=== PATIENT | male | born 1975 | race Caucasian/White ===

== ENCOUNTER → 2022-02-26 | Outpatient (CLI) | payer MEDICARE, MEDICAID | LOC: CARDFS 02-15 13:32 | PROVIDERS: ATTEND Nurse Practitioner | DX: I34.0 Nonrheumatic mitral (valve) insufficiency (principal); I51.7 Cardiomegaly | CPT/HCPCS: 93306 ==

== ENCOUNTER 2022-12-17 14:33 | Emergency (ER) | payer MEDICARE, MEDICAID ==
[~2022-12-17] VITALS: Ht 172 cm; Wt 70.0 kg
--- NOTE | 2022-12-17 15:39 | ED Upper Extremity ---
General Chief Complaint: Upper Extremity Stated Complaint: RT FOREARM PAIN Nursing Triage Note: PT AMB TO TRIAGE PT CO OF R FOREARM HAVING REDDNESS AND PAIN 5/10, PT HAS SCABBED AREA NOTED AT WRIST AREA. 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 Source: patient History of Present Illness Date Seen by Provider: Dec 17, 2022 Time Seen by Provider: 15:32 Initial Comments This is a 47-year-old male who presented to the ER with complaints of right forearm redness and pain that started yesterday. Allergies and Home Medications Allergies Coded Allergies: No Known Drug Allergies (Unverified , 12/17/22) Past Ciqghpt-Fscpxl-Nizkog Hx Patient Social History Tobacco Use?: No Substance use?: No Alcohol Use?: No Pt feels they are or have been: No Immunizations Up To Date Influenza Vaccine Up-to-Date: No; Not Current First/Initial COVID19 Vaccinat: NO Second COVID19 Vaccination Leon: NO Past Medical History Surgery/Hospitalization HX: RENAL FAILURE, DIALYSIS Physical Exam Vital Signs Vital Signs - First Documented 12/17/22 14:45 Temp 36.8 Pulse 79 Resp 18 Pulse Ox 96 Capillary Refill : Height, Weight, BMI Height: '" Weight: lbs. oz. kg; 23.00 BMI Method: Progress/Results/Core Measures Results/Orders Lab Results Laboratory Tests Test 12/17/22 15:30 Range/Units White Blood Count 9.6 4.3-11.0 10^3/uL Red Blood Count 3.63 L 4.30-5.52 10^6/uL Hemoglobin 11.8 L 13.3-17.7 g/dL Hematocrit 34 L 40-54 % Mean Corpuscular Volume 94 80-99 fL Mean Corpuscular Hemoglobin 33 25-34 pg Mean Corpuscular Hemoglobin Concent 35 32-36 g/dL Red Cell Distribution Width 13.1 10.0-14.5 % Platelet Count 235 130-400 10^3/uL Mean Platelet Volume 9.1 9.0-12.2 fL Immature Granulocyte % (Auto) 1 % Neutrophils (%) (Auto) 74 42-75 % Lymphocytes (%) (Auto) 7 L 12-44 % Monocytes (%) (Auto) 15 H 0-12 % Eosinophils (%) (Auto) 3 0-10 % Basophils (%) (Auto) 1 0-10 % Neutrophils # (Auto) 7.1 1.8-7.8 10^3/uL Lymphocytes # (Auto) 0.7 L 1.0-4.0 10^3/uL Monocytes # (Auto) 1.4 H 0.0-1.0 10^3/uL Eosinophils # (Auto) 0.3 0.0-0.3 10^3/uL Basophils # (Auto) 0.1 0.0-0.1 10^3/uL Immature Granulocyte # (Auto) 0.1 0.0-0.1 10^3/uL Neutrophils % (Manual) 73 % Lymphocytes % (Manual) 6 % Monocytes % (Manual) 12 % Eosinophils % (Manual) 7 % Basophils % (Manual) 2 % Blood Morphology Comment NORMAL D-Dimer 0.33 0.00-0.49 UG/ML Sodium Level 139 135-145 MMOL/L Potassium Level 3.3 L 3.6-5.0 MMOL/L Chloride Level 97 L 98-107 MMOL/L Carbon Dioxide Level 27 21-32 MMOL/L Anion Gap 15 H 5-14 MMOL/L Blood Urea Nitrogen 26 H 7-18 MG/DL Creatinine 7.40 H 0.60-1.30 MG/DL Estimat Glomerular Filtration Rate 8 BUN/Creatinine Ratio 4 Glucose Level 103 70-105 MG/DL Calcium Level 9.0 8.5-10.1 MG/DL Corrected Calcium 8.9 8.5-10.1 MG/DL Total Bilirubin 1.4 H 0.1-1.0 MG/DL Aspartate Amino Transf (AST/SGOT) 19 5-34 U/L Alanine Aminotransferase (ALT/SGPT) 24 0-55 U/L Alkaline Phosphatase 98 40-136 U/L C-Reactive Protein High Sensitivity 3.44 H 0.00-0.50 MG/DL Total Protein 7.6 6.4-8.2 GM/DL Albumin 4.1 3.2-4.5 GM/DL My Orders Orders - MELINDA ERNST ACCOUNTING SUPERVISOR Cbc With Automated Diff (12/17/22 15:30) Comprehensive Metabolic Panel (12/17/22 15:30) Hs C Reactive Protein (12/17/22 15:30) Fibrin Degradation Products (12/17/22 15:30) Us Venous Upper Ext Rt (12/17/22 15:39) Manual Differential (12/17/22 15:30) Vital Signs/I&O 12/17/22 14:45 Temp 36.8 Pulse 79 Resp 18 B/P (MAP) Pulse Ox 96 Departure Impression Primary Impression: Cellulitis of forearm, right Disposition: HOME, SELF-CARE Condition: Improved Departure-Patient Inst. Decision time for Depature: 18:20 Referrals: MYRON ESPINOZA (PCP) Primary Care Physician HAYDER HERMOSILLO MD (Family) Primary Care Physician Patient Instructions: Cellulitis (Skin Infection), Adult (DC) Add. Discharge Instructions: Plan: 1. Take Cephalexin 500mg by mouth every day, take after dialysis treatment. Will take for 7 days. 2. Follow up with your doctor next week. 3 RETURN if you have fever, increased redness, pain, or any other new or concern ing symptoms. All discharge instructions reviewed with patient and/or family. Voiced understanding. Scripts Cephalexin (Cephalexin) 500 Mg Tablet 500 MG PO DAILY for 7 Days, #6 TAB 0 Refills Prov: MELINDA ERNST ACCOUNTING SUPERVISOR 12/17/22 MELINDA ERNST ACCOUNTING SUPERVISOR Dec 17, 2022 15:39
[2022-12-17 15:48] LABS: BASOPHILS # (AUTO) 0.1 10^3/uL (0.0-0.1); BASOPHILS % (AUTO) 1 % (0-10); EOSINOPHILS # (AUTO) 0.3 10^3/uL (0.0-0.3); EOSINOPHILS % (AUTO) 3 % (0-10); HEMATOCRIT 34 % (40-54); HEMOGLOBIN 11.8 g/dL (13.3-17.7); LYMPHOCYTES # (AUTO) 0.7 10^3/uL (1.0-4.0); LYMPHOCYTES % (AUTO) 7 % (12-44); MEAN CORPUSCULAR HEMOGLOBIN 33 pg (25-34); MEAN CORPUSCULAR HGB CONC 35 g/dL (32-36); MEAN CORPUSCULAR VOLUME 94 fL (80-99); MEAN PLATELET VOLUME 9.1 fL (9.0-12.2); MONOCYTES # (AUTO) 1.4 10^3/uL (0.0-1.0); MONOCYTES % (AUTO) 15 % (0-12); NEUTROPHILS # (AUTO) 7.1 10^3/uL (1.8-7.8); NEUTROPHILS % (AUTO) 74 % (42-75); PLATELET COUNT 235 10^3/uL (130-400); WHITE BLOOD COUNT 9.6 10^3/uL (4.3-11.0)
[2022-12-17 16:12] LABS: BASOPHILS % (MANUAL) 2 %; EOSINOPHILS % (MANUAL) 7 %; LYMPHOCYTES % (MANUAL) 6 %; MONOCYTES % (MANUAL) 12 %; NEUTROPHILS % (MANUAL) 73 %; RBC MORPH NORMAL
[2022-12-17 16:28] LABS: ALBUMIN 4.1 GM/DL (3.2-4.5); BILIRUBIN,TOTAL 1.4 MG/DL (0.1-1.0); CREATININE SERUM 7.4 MG/DL (0.60-1.30); POTASSIUM 3.3 MMOL/L (3.6-5.0); TOTAL PROTEIN 7.6 GM/DL (6.4-8.2)
--- NOTE | 2022-12-17 18:12 | Diagnostic Imaging Report ---
Exam: Right upper extremity venous Doppler ultrasound. Date: December 17, 2022. Indication: 47-year-old male, right upper extremity redness and pain. Comparison: None. Findings: The imaged right upper extremity venous vasculature is patent. There is an arteriovenous fistula noted which is patent with peak systolic velocities of 369 cm/s and 191 cm/s within the fistula. IMPRESSION: 1. Negative for right upper extremity deep venous thrombosis. 2. Patent arterial venous fistula. Dictated by: Dictated on workstation # [id number]
[2022-12-17] MEDS ORDERED: CEPH500T PO (18:22)
[2022-12-17] MEDS ORDERED: CEPHALEXIN 250 MG (KEFLEX) CAP PO ONE (18:30)
[2022-12-17 18:32] VITALS: BP 180/82
== END 2022-12-17 18:32 | disposition home or self-care (01) ==
LOC: EDUNIT# 14:33 → ER 14:35
DX: L03.113 Cellulitis of right upper limb (principal)
CPT/HCPCS: 36415; 80053; 85007; 85025; 85027; 85379; 86141

== ENCOUNTER → 2023-08-21 | Outpatient (CLI) | payer MEDICARE, MEDICAID ==
[~2023-08-21] MED LIST: CEPH500T PO
== END ==
LOC: CARD 10:53
PROVIDERS: ATTEND Nurse Practitioner
DX: I34.0 Nonrheumatic mitral (valve) insufficiency (principal); I15.1 Hypertension secondary to other renal disorders; I35.8 Other nonrheumatic aortic valve disorders; I50.30 Unspecified diastolic (congestive) heart failure; I11.9 Hypertensive heart disease without heart failure
CPT/HCPCS: 93306